=== PATIENT | female | born 1995 | race Caucasian/White ===

== ENCOUNTER → 2017-12-05 | Outpatient (CLI) | payer BC | LOC: BHSO 14:15 | DX: F33.2 Major depressive disorder, recurrent severe without psychotic features (principal) | CPT/HCPCS: G0463 ==

== ENCOUNTER → 2018-01-02 | Outpatient (CLI) | payer BC | LOC: BHSO 13:37 | DX: F41.1 Generalized anxiety disorder (principal) | CPT/HCPCS: G0463 ==

== ENCOUNTER → 2018-02-06 | Outpatient (CLI) | payer BC | LOC: BHSO 13:35 | DX: F41.1 Generalized anxiety disorder (principal) | CPT/HCPCS: G0463 ==

== ENCOUNTER → 2018-04-11 | Outpatient (CLI) | payer BC | LOC: BHSO 10:51 | DX: F41.1 Generalized anxiety disorder (principal) | CPT/HCPCS: G0463 ==

== ENCOUNTER → 2018-06-20 | Outpatient (CLI) | payer BC | LOC: BHSO 11:00 | DX: F41.1 Generalized anxiety disorder (principal) | CPT/HCPCS: G0463 ==

== ENCOUNTER → 2018-08-23 | Outpatient (CLI) | payer BC | LOC: BHSO 11:23 | DX: F41.1 Generalized anxiety disorder (principal) | CPT/HCPCS: G0463 ==

== ENCOUNTER → 2018-11-27 | Outpatient (CLI) | payer BC | LOC: BHSO 13:22 | DX: F41.1 Generalized anxiety disorder (principal) | CPT/HCPCS: G0463 ==

== ENCOUNTER → 2019-02-22 | Outpatient (CLI) | payer BC | LOC: BHSO 15:23 | DX: F41.1 Generalized anxiety disorder (principal) | CPT/HCPCS: G0463 ==

== ENCOUNTER → 2019-06-04 | Outpatient (CLI) | payer BC | LOC: BHSO 09:24 | DX: F41.1 Generalized anxiety disorder (principal) | CPT/HCPCS: G0463 ==

== ENCOUNTER → 2019-11-13 | Outpatient (CLI) | payer BC | LOC: BHSO 14:36 | DX: F41.1 Generalized anxiety disorder (principal) | CPT/HCPCS: G0463 ==

== ENCOUNTER → 2020-06-02 | Outpatient (CLI) | payer BC | LOC: BHSO 14:31 | DX: F41.1 Generalized anxiety disorder (principal) | CPT/HCPCS: G0463 ==